=== PATIENT | female | born 1975 | race Caucasian/White ===

== ENCOUNTER 2016-07-04 16:04 | Emergency (ER) | payer OTHER ==
--- NOTE | 2016-07-04 16:43 | ER Document Report ---
ED Medical Screen (RME) - General Stated Complaint: MOUTH INJURY Time seen by provider: 16:40 Mode of Arrival: Ambulatory Information source: Patient Notes: 40-year-old female presents to ED for mouth injury around 4 PM today. They were throwing a baseball [id number] and the baseball came over top for a glove and hit her in the mouth. With a laceration to the upper lip. Patient denies pain in the tooth area. Last menstrual period 07/03/2016 I have greeted and performed a rapid initial assessment of this patient. A comprehensive ED assessment and evaluation of the patient, analysis of test results and completion of medical decision making process will be conducted by an additional ED providers. Physical Exam - Vital signs Vitals: Temp Pulse Resp BP Pulse Ox 98.3 F 64 14 133/76 H 98 07/04/16 16:08 07/04/16 16:08 07/04/16 16:08 07/04/16 16:08 07/04/16 16:08 Course - Vital Signs Vital signs: Temp Pulse Resp BP Pulse Ox 98.3 F 64 14 133/76 H 98 07/04/16 16:08 07/04/16 16:08 07/04/16 16:08 07/04/16 16:08 07/04/16 16:08
[2016-07-04] MEDS ORDERED: DIPH/PERTUSS(ACELL)/TETANUS VAC/PF 0.5 ML SYR (>=10YO) IM ONE (19:31)
[2016-07-04] MEDS ORDERED: LIDOCAINE 2%/EPINEPHRINE INJ 20 ML VIAL INJ ONE (19:31)
--- NOTE | 2016-07-04 19:33 | ER Document Report ---
ED Wound - General Chief Complaint: Mouth Injury Stated Complaint: MOUTH INJURY Time seen by provider: 19:25 Mode of Arrival: Ambulatory Notes: Patient is a 40-year-old female that comes emergency department with chief complaint of laceration to the upper lip with swelling of the upper lip after accidentally being hit in the face by a thrown baseball which hit the top of her glove when she tried to catch it. He denies any injuries to the rest of the face, nose, eyes, she denies neck pain, she denies syncope, dizziness, or vomiting. He is not up-to-date on her tetanus within 5 years. TRAVEL OUTSIDE OF THE [place] IN LAST 30 DAYS: No - Related Data Allergies/Adverse Reactions: No Known Allergies Allergy (Unverified 07/04/16 16:42) Past Medical History - General Information source: Patient - Social History Smoking Status: Never Smoker Chew tobacco use (# tins/day): No Frequency of alcohol use: None Drug Abuse: None Lives with: Family Family History: Reviewed & Not Pertinent Patient has suicidal ideation: No Patient has homicidal ideation: No - Medical History Medical History: Negative Renal/ Medical History: Denies: Hx Peritoneal Dialysis Surgical Hx: Negative - Immunizations Immunizations up to date: No Hx Diphtheria, Pertussis, Tetanus Vaccination: Yes Review of Systems - Review of Systems Constitutional: No symptoms reported EENT: See HPI Cardiovascular: No symptoms reported Respiratory: No symptoms reported Gastrointestinal: No symptoms reported Genitourinary: No symptoms reported Female Genitourinary: No symptoms reported Musculoskeletal: See HPI Skin: See HPI Hematologic/Lymphatic: No symptoms reported Neurological/Psychological: No symptoms reported Physical Exam - Vital signs Vitals: Temp Pulse Resp BP Pulse Ox 98.3 F 64 14 133/76 H 98 07/04/16 16:08 07/04/16 16:08 07/04/16 16:08 07/04/16 16:08 07/04/16 16:08 Interpretation: Normal - General General appearance: Appears well, Alert In distress: None - HEENT Head: Normocephalic, Atraumatic Eyes: Normal Conjunctiva: Normal Extraocular movements intact: Yes Eyelashes: Normal Pupils: PERRL Ears: Normal External canal: Normal Tympanic membrane: Normal Sinus: Normal Nasal: Normal Mouth/Lips: Other - Upper lip abrasion with swelling on the left side, underside of the liver with a horizontal 1 cm irregular laceration which is partial-thickness, no through and through injury, teeth examination is normal, calm examination is normal, tongue and pharynx examination is normal. Mucous membranes: Normal Pharynx: Normal Neck: Normal - Respiratory Respiratory status: No respiratory distress Chest status: Nontender Breath sounds: Normal Chest palpation: Normal - Cardiovascular Rhythm: Regular Heart sounds: Normal auscultation Murmur: No - Abdominal Inspection: Normal Distension: No distension Bowel sounds: Normal Tenderness: Nontender Organomegaly: No organomegaly - Back Back: Normal, Nontender - Extremities General upper extremity: Normal inspection, Nontender, Normal color, Normal ROM , Normal temperature General lower extremity: Normal inspection, Nontender, Normal color, Normal ROM , Normal temperature, Normal weight bearing. No: Tanya's sign - Neurological Neuro grossly intact: Yes Cognition: Normal Orientation: AAOx4 Jessy Coma Scale Eye Opening: Spontaneous Jessy Coma Scale Verbal: Oriented Jessy Coma Scale Motor: [place] Coma Scale Total: 15 Speech: Normal Motor strength normal: LUE, RUE, LLE, RLE Sensory: Normal - Psychological Associated symptoms: Normal affect, Normal mood - Skin Skin Temperature: Warm Skin Moisture: Dry Skin Color: Normal Course - Re-evaluation Re-evalutation: No significant head injury. No tenderness of the sinuses, no dental injuries, appears to be isolated injury appointment with laceration which was repaired, discussed follow-up and return precautions, patient states understanding and agreement. - Vital Signs Vital signs: Temp Pulse Resp BP Pulse Ox 97.8 F 58 L 16 117/52 L 100 07/05/16 00:39 07/05/16 00:39 07/05/16 00:39 07/05/16 00:39 07/05/16 00:39 Procedures - Laceration/Wound Repair left side of upper lip Wound length (cm): 1 Wound's Depth, Shape: Irregular Laceration pre-procedure: Sterile PPE donned, Sterile drapes applied, Other - Surgical cleanser Anesthetic type: 1% Lidocaine w/epi Volume Anesthetic (mLs): 1 Wound explored: Clean, No foreign body removed Irrigated w/ Saline (mLs): 20 Wound Repaired With: Sutures Suture Size/Type: 5:0, Vicryl Number of Sutures: 3 Layer Closure?: No Post-procedure NV exam normal: Yes Complications: No Discharge - Discharge Clinical Impression: Lip laceration Qualifiers: Encounter type: initial encounter Qualified Code(s): S01.511A - Laceration without foreign body of lip, initial encounter Condition: Stable Disposition: HOME, SELF-CARE Instructions: Tetanus Immunization Given ([facility]) Additional Instructions: The sutures are going to dissolve on their own. Ice your lip, over the next 1-2 days the area may bleed slightly intermittently. Avoid injury or significant pulling to the area. Follow-up with primary care. Return immediately for any signs of infection including redness, swelling, discolored drainage, fever, or any other concerning symptoms.
[2016-07-05 00:40] VITALS: BP 117/52
== END 2016-07-04 22:45 | disposition home or self-care (01) ==
LOC: EDBD 16:04 → ER 16:04
PROC: 0CQ0XZZ Repair Upper Lip, External Approach (ICD-10-PCS; principal; 2016-07-04)
DX: S01.511A Laceration without foreign body of lip, initial encounter (principal); W21.03XA Struck by baseball, initial encounter; Y93.64 Activity, baseball
CPT/HCPCS: 12011; 99282; 90471; 90715; J3490